=== PATIENT | female | born 1970 | race Caucasian/White ===

== ENCOUNTER 2018-03-27 05:26 | Inpatient (IN) | payer BC ==
[2018-03-27] MEDS ORDERED: GELATIN SIZE 100 SPONGE (06:42)
[2018-03-27] MEDS ORDERED: THROMBIN 5000 UNIT VIAL (06:42)
[2018-03-27] MEDS: BUPIVACAINE 0.25% (MPF) 30 ML INJ (06:42)
[2018-03-27] MEDS: POLYMYXIN/BACITRACIN 1L IRRIG (06:42)
[2018-03-27] MEDS ORDERED: CEFAZOLIN 2 GM/50 ML (PMX) 50 ML IVPB (06:51)
[2018-03-27] MEDS ORDERED: NEOSTIGMINE 3 MG/3 ML SYRINGE ×2 (07:01→08:07)
[2018-03-27] MEDS ORDERED: SUCCINYLCHOLINE CHLORIDE 100 MG/5 ML SYG IV (07:01)
[2018-03-27] MEDS ORDERED: LIDOCAINE 2% (SDV) 5 ML INJ (07:01)
[2018-03-27] MEDS ORDERED: ROCURONIUM 50 MG INJ ×2 (07:01→08:38)
[2018-03-27] MEDS ORDERED: PROPOFOL 20 ML (07:01)
[2018-03-27] MEDS ORDERED: MEPERIDINE 100 MG INJ (07:01)
[2018-03-27] MEDS ORDERED: GLYCOPYRROLATE 0.4 MG INJ ×2 (07:01→08:07)
[2018-03-27] MEDS ORDERED: METOCLOPRAMIDE 10 MG INJ (07:52)
[2018-03-27] MEDS ORDERED: ONDANSETRON 4 MG INJ (07:52)
[2018-03-27] MEDS ORDERED: EPHEDrine SULFATE 50 MG/5 ML SYG (08:32)
[2018-03-27] MEDS ORDERED: hydrALAzine 20 MG INJ IV (09:00)
[2018-03-27] MEDS ORDERED: FENTAnyl 50 MCG/ML VIAL IV ×3 (09:00)
[2018-03-27] MEDS ORDERED: LABETALOL HCL 20MG INJ IV (09:00)
[2018-03-27] MEDS ORDERED: ONDANSETRON 4 MG INJ IV ×2 (09:00→09:30)
[2018-03-27] MEDS ORDERED: MIDAZOLAM 1 MG/ML 2 ML INJ IV (09:00)
[2018-03-27] MEDS ORDERED: HYDROmorphONE 1 MG/5 ML IV SYRINGE IV (09:00)
[2018-03-27] MEDS ORDERED: OXYCODONE/ACETAMINOPHEN (5/325) TAB PO ×3 (09:00→13:30)
[2018-03-27] MEDS ORDERED: MEPERIDINE 25 MG INJ IV (09:00)
[2018-03-27] MEDS ORDERED: METOCLOPRAMIDE 10 MG INJ IV (09:00)
[2018-03-27] MEDS ORDERED: EPHEDrine SULFATE 50 MG/5 ML SYG IV (09:00)
[2018-03-27] MEDS: DIPHENHYDRAMINE 50 MG INJ IV (09:13)
[2018-03-27] MEDS ORDERED: TRIMETHOBENZAMIDE 100 MG/ML VIAL IM (09:30)
[2018-03-27] MEDS ORDERED: DIAZEPAM 5 MG/ML SYG IM (09:30)
[2018-03-27] MEDS ORDERED: ACETAMINOPHEN 325 MG TAB PO (09:30)
[2018-03-27] MEDS ORDERED: NALOXONE (0.4 MG/ML) INJ IV (09:30)
[2018-03-27] MEDS ORDERED: BETHANECHOL 25 MG TAB PO (09:30)
[2018-03-27] MEDS ORDERED: NACL 0.9% 3 ML SYG IV (09:30)
[2018-03-27] MEDS ORDERED: AL HYDROX/MG HYDROX/SIMETH 30 ML CUP PO (09:30)
[2018-03-27] MEDS: HYDROmorphONE 1 MG/5 ML IV SYRINGE IV ×2 (09:52→10:31)
[2018-03-27] MEDS: HYDROmorphONE 0.2 MG/ML PCA IV (09:58)
[2018-03-27] MEDS: DIPHENHYDRAMINE 50 MG CAP PO ×2 (12:00→21:16)
[2018-03-27] MEDS: DEXTROSE 5%-0.45% NACL 1,000 ML IV ×2 (12:01→19:08)
[2018-03-27] MEDS: CEFAZOLIN 1 GM/50 ML (PMX) 50 ML IVPB ×2 (12:38→17:45)
[2018-03-27] MEDS: OXYCODONE/ACETAMINOPHEN (5/325) TAB PO ×3 (13:59→21:41)
[2018-03-27] MEDS: metFORMIN 850 MG TAB PO (18:16)
[2018-03-27] MEDS: ACCU-CHEK XX (18:16)
[2018-03-27] MEDS: RANITIDINE 150 MG TAB PO (20:11)
[2018-03-27] MEDS: DIAZEPAM 5 MG TAB PO (20:11)
[2018-03-27] MEDS: CEPASTAT LOZENGE MT (21:16)
[2018-03-28] MEDS: DEXTROSE 5%-0.45% NACL 1,000 ML IV (00:16)
[2018-03-28] MEDS: CEFAZOLIN 1 GM/50 ML (PMX) 50 ML IVPB ×2 (00:16→05:52)
[2018-03-28] MEDS: ZOLPIDEM 5 MG TAB PO (00:21)
[2018-03-28] MEDS: DIAZEPAM 5 MG TAB PO ×2 (01:12→06:44)
[2018-03-28] MEDS: OXYCODONE/ACETAMINOPHEN (5/325) TAB PO ×3 (04:29→13:02)
[2018-03-28 05:08] LABS: HEMATOCRIT 32.9 % (37.0-47.0); HEMOGLOBIN 10.7 g/dl (12.0-16.0)
[2018-03-28 05:36] LABS: ANION GAP 6 (5-13); BLOOD UREA NITROGEN 6 mg/dl (7-20); CALCIUM 8.5 mg/dl (8.4-10.2); CARBON DIOXIDE 28 mmol/L (21-31); CHLORIDE 106 mmol/L (97-110); Estimated GFR > 60 mL/min (>60); GLUCOSE 91 mg/dl (70-220); POTASSIUM 3.9 mmol/L (3.5-5.1); SODIUM 140 mmol/L (135-144)
[2018-03-28] MEDS ORDERED: BETHANECHOL 25 MG TAB PO (08:00)
[2018-03-28] MEDS: ACCU-CHEK XX (08:30)
[2018-03-28] MEDS: DOCUSATE SODIUM 100 MG CAP PO (09:00)
[2018-03-28] MEDS: ASCORBIC ACID 500 MG TAB PO (09:00)
[2018-03-28] MEDS: metFORMIN 850 MG TAB PO (09:00)
[2018-03-28] MEDS: FERROUS SULFATE (EC) 325 MG TAB PO ×2 (09:01→12:27)
[2018-03-28] MEDS: RANITIDINE 150 MG TAB PO (09:01)
[2018-03-28] MEDS: LABETALOL 100 MG TAB PO (09:05)
[2018-03-28] MEDS ORDERED: HYDROCODONE/APAP (5/325) TAB PO ×2 (09:30)
[2018-03-28 14:07] LABS: ADD UMIC NO; UR ASCORBIC ACID NEGATIVE (NEGATIVE); UR BILIRUBIN (Dip) NEGATIVE (NEGATIVE); UR BLOOD (Dip) NEGATIVE (NEGATIVE); UR CLARITY CLEAR (CLEAR); UR COLOR STRAW (YELLOW); UR GLUCOSE (Dip) NEGATIVE (NEGATIVE); UR KETONES (Dip) NEGATIVE (NEGATIVE); UR LEUKOCYTE ESTERASE (Dip) NEGATIVE Leu/ul (NEGATIVE); UR NITRITE (Dip) NEGATIVE (NEGATIVE); UR SPECIFIC GRAVITY (Dip) 1.005 (1.003-1.030); UR TOTAL PROTEIN (Dip) NEGATIVE (NEGATIVE); UR UROBILINOGEN (Dip) NEGATIVE (NEGATIVE)
== END 2018-03-28 16:15 | disposition home or self-care (01) | DRG 520 ==
LOC: REC 05:26 → MS1 10:41
PROVIDERS: Orthopaedic Surgery
PROC: 01NB0ZZ Release Lumbar Nerve, Open Approach (ICD-10-PCS; principal; 2018-03-27 07:00)
PROC: 0SB20ZZ Excision of Lumbar Vertebral Disc, Open Approach (ICD-10-PCS; 2018-03-27 07:00)
DX: M51.16 Intervertebral disc disorders with radiculopathy, lumbar region (principal); I10 Essential (primary) hypertension; E78.5 Hyperlipidemia, unspecified; E88.81 Metabolic syndrome and other insulin resistance
CPT/HCPCS: 72020; 80048; 81003; 82962; 85014; 85018; 86850; 86900; 86901; 86920; 88304; 97116; 97161; 97530